=== PATIENT | male | born 1945 | race Caucasian/White ===

== ENCOUNTER → 2018-03-12 | Outpatient (CLI) | payer MEDICARE, BC ==
[~2018-03-12] MED LIST: ACETAMINOPHEN325 M1 PO; ASPIRIN81 M2 PO; ATENOLOL 25 MG25 M1 PO; AVELOX 400 MG400 MG PO; B-COMPLEX FOL400 MCG PO; CALCIUM 600 MG1 EAC3 PO; DAILY GARLIC O400 MG PO; FISH OIL 1,0001 EAC5 PO; FISH OIL 1,2001 EAC4 PO; LISINOPRIL20 MG PO; MUCINEX TA600 MG/TA1 PO; NEPHROCAPS SOFT1 CAP PO; PRINIVIL PO; ROBITUSSIN100 MG/5 M PO; SUPER B-COMPL400 MCG PO; TENORMIN PO; XANAX 0.25 MG0.25 MG PO
== END ==
LOC: M.MRI 10:48
DX: I67.82 Cerebral ischemia (principal); J33.9 Nasal polyp, unspecified; J34.1 Cyst and mucocele of nose and nasal sinus; F33.1 Major depressive disorder, recurrent, moderate; R26.81 Unsteadiness on feet

== ENCOUNTER 2018-05-05 14:09 | Inpatient (IN) | payer MEDICARE, BC ==
[~2018-05-05] VITALS: Ht 170.2 cm; Wt 83.9 kg
--- NOTE | ~2018-05-05 | OP ---
[address] [address] OPERATIVE REPORT Name: ALTAGRACIA CAPELLAN Room: [address] IN [facility]#: [id number] Admission: 05/05/18 Attend Phys: Brendan Gibbs MD Discharge: Date of : 41 Report #: [id number] THIS REPORT FOR: //name// CC: Brendan Ortiz DATE OF SERVICE: 05/06/2018 PREOPERATIVE DIAGNOSES: 1. Left ureteral stone. 2. Left renal stones. POSTOPERATIVE DIAGNOSES: 1. Left ureteral stone. 2. Left renal stones. PROCEDURE PERFORMED: Cystoscopy, left retrograde pyelogram, ureteroscopy, laser lithotripsy and stent placement. SURGEON: Brendan Hughes MD. ANESTHESIA: General. ESTIMATED BLOOD LOSS: Minimal. COMPLICATIONS: None. INDICATION FOR PROCEDURE: This is a 73-year-old gentleman with long history of stones. He presents acutely with left flank pain. CT scan confirms a 5-6 mm left proximal ureteral stone with some hydronephrosis and multiple stones in the left kidney. His options for management were discussed in detail and he would like to proceed with cystoscopy, left retrograde pyelogram, ureteroscopy, laser lithotripsy and possible stent placement. The risks, benefits, possible complications were explained in detail to both he and his family. They voiced clear understanding and would like to proceed. DESCRIPTION OF OPERATION: After obtaining informed consent, the patient was taken to the operating room and placed in supine position. After adequate general anesthesia and IV antibiotics, he was prepped and draped in the dorsal lithotomy position. A 21-Hungarian cystoscope with 30-degree lens was introduced into the urethra, was normal caliber all the way down to the prostatic urethra, which showed moderate bilobar hypertrophy. Upon entering the bladder, the bladder systematically inspected. There were no stones, tumors or diverticula. There was mild trabeculation throughout. The left ureteral catheter was used to perform retrograde pyelogram. There is a faint calcific density overlying the [id number] third of the ureter. On retrograde, [place] [address] OPERATIVE REPORT Name: ALTAGRACIA CAPELLAN Room: [address] IN ..#: [id number] Admission: 05/05/18 Attend Phys: Brendan Gibbs MD Discharge: Date of : 41 Report #: [id number] There was mild hydro proximal, but no significant pelvocaliectasis. There were multiple calcific densities overlying the left renal shadow. A sensor guidewire was passed in retrograde fashion and rigid ureteroscopy was carried out alongside the wire into the distal ureter where the stone was encountered. It was estimated to be about 6 mm. Using a 200 micron holmium laser fiber, stone was fragmented in multiple tiny fragments. The stones were basketed and retrieved atraumatically through the distal ureter. An access sheath was then placed over the wire under fluoroscopic guidance in the mid ureter. A second wire was placed as a safety wire and flexible ureteroscopy was carried out into the kidney. The kidney was inspected. There were multiple stones in some of the calices, ranging from 3 mm to 6 mm. Using a 200 micron holmium laser fiber, the stones were fragmented in multiple tiny fragments. Some of the larger fragments were basketed. The lower pole malcolm was difficult to visualize due to some bleeding in that region. Otherwise, all sizable fragments were removed. The ureteral access sheath was removed and the ureter was inspected. Upon removal of the ureteroscope, there was no evidence of any ureteral injury or ureteral stones. The cystoscope was replaced in the bladder and a 4.8 x 28 cm double-J stent was passed over the wire in a retrograde fashion. A good coil was noted overlying the renal pelvis under fluoroscopy and a good coil was directly visualized in the bladder. The bladder was drained. Uro-Jet was applied per urethra. B and O suppository was placed per rectum. Under crew caller imaging at the end of the case, the stent was in good location. No obvious stone fragments were identified. The patient was extubated and taken to recovery room in good condition with plans to return care to the floor, dismiss when stable. Follow up in 1-2 weeks for KUB and possible stent removal depending on residual stone burden. By: [id number] Hughes MD /saturnino
[~2018-05-05 14:09] MED LIST changes: +B COMPLEX FOLIC ACID; -B-COMPLEX FOL400 MCG PO; +CALCIUM 600 MG; -CALCIUM 600 MG1 EAC3 PO; +VIT
[2018-05-05 14:47] VITALS: BP 166/79
[2018-05-05 14:56] LABS: ABSOLUTE LYMPHOCYTES 1.4 thou/uL (0.8-5.3); ABSOLUTE MONOCYTES 0.9 thou/uL (0.0-1.2); ABSOLUTE NEUTROPHILS 10.8 thou/uL (1.6-8.1); BASOPHILS 0.2 %; HEMATOCRIT 48.3 % (42.0-52.0); HEMOGLOBIN 16.2 gm/dL (14.0-18.0); LYMPHOCYTES 10.4 %; MCH 32.6 pg (26.0-34.0); MCHC 33.4 g/dL (28.0-37.0); MCV 97.6 fL (80.0-100.0); MONOCYTES 7.1 %; MPV 7.6 fl. (7.2-11.1); NUCLEATED RBCS 0 /100WBC; PLATELET COUNT* 263 thou/uL (150-400); POLYS 82.3 %; RBC 4.95 mil/uL (4.50-6.00); RDW-CV 12.9 % (10.5-14.5); WBC 13.1 thou/uL (4.0-11.0)
[2018-05-05 15:03] LABS: CALCIUM 8.9 mg/dL (8.5-10.1); CREATININE 1.9 mg/dL (0.6-1.3); POTASSIUM 4.3 mmol/L (3.5-5.1)
[2018-05-05 15:07] LABS: ALBUMIN 3.4 g/dL (3.4-5.0); TOTAL PROTEIN 7.4 g/dL (6.4-8.2)
--- NOTE | 2018-05-05 15:20 | NUR ---
CT COMPLEATE PATIENT RETURNED TO ED
--- NOTE | 2018-05-05 18:26 | NUR ---
DR SANCHEZ AND THE ED PROVIDER DISCUSSED WHETHER OR NOT TO STRAIGHT CATH PT AND OR TO PLACE A CARROLL, DR SANCHEZ WANTED DR JOHNSON TO DECIDE WHICH HE WANTED TO BE PLACED. DR JOHNSON PAGED AND CALL RECIEVED ON JOINT AND SPINE. ORDERS TAKEN AND PLACED IN PT CHART ON JOINT SPINE, WILLIAM THE RN ON JOINT SPINE UPDATED REGARDING NEW ORDERS AND CONSTRUCTION COST ESTIMATOR NOTIFIED REGARDING SUPPLIES NEEDED FOR NEW ORDER. WILL SIGN OFF CARE AT THIS TIME
[2018-05-05 18:39] VITALS: BP 136/79
--- NOTE | 2018-05-05 19:50 | NUR ---
PT ARRIVED ON UNIT @ 1814. ALERT AND ORIENTED X 4, BUT SLOW TO RESPOND AT TIMES. REPORTS PAIN @ 09/30. DENIES NAUSEA. PT ORIENTED TO ROOM. PT USED URINAL WITH SBA X 1 @ BEDSIDE WITH 350 ML OUTPUT. @ BEDSIDE. BED ALARM IN USE. PT HAS CALL LIGHT WITHIN REACH.
[2018-05-05 20:00] VITALS: BP 149/80
--- NOTE | 2018-05-06 03:31 | NUR ---
PT HAD OUTPUT OF 850ML BY 2100. CARROLL NOT PLACE. PT STATES NO DISCOMFORT. PAIN CONTROLLED WITH MORPHINE. UA SENT TO LAB AT 0330.
[2018-05-06 04:18] LABS: HEMATOCRIT 40.6 % (42.0-52.0); MCH 33.4 pg (26.0-34.0); MCHC 33.8 g/dL (28.0-37.0); MCV 98.8 fL (80.0-100.0); MPV 7.7 fl. (7.2-11.1); RBC 4.11 mil/uL (4.50-6.00); RDW-CV 13.3 % (10.5-14.5); WBC 9.7 thou/uL (4.0-11.0)
[2018-05-06 04:41] LABS: ALBUMIN 2.6 g/dL (3.4-5.0); CREATININE 1.9 mg/dL (0.6-1.3); MAGNESIUM 1.8 mg/dL (1.8-2.4); POTASSIUM 4.2 mmol/L (3.5-5.1); TOTAL BILIRUBIN 1.3 mg/dL (<0.1-1.0); TOTAL PROTEIN 5.9 g/dL (6.4-8.2)
--- NOTE | 2018-05-06 04:48 | NUR ---
PT REMAINED A&Ox4 THROUGHOUT SHIFT. VITALS STABLE. PAIN CONTROLLED WITH MORPHINE. NAUSEA CONTROLLED WITH ZOFRAN. PT STATED DOES NOT TAKE INSULIN AT HOME SO DENIED HS DOSE. IV IN R AC PATENT, INFUSING. UP WITH STB TO BATHROOM, 1000ML+ OF URINE OUTPUT SO FAR DURING SHIFT, DID NOT PUT IN CARROLL. NPO SINCE MIDNIGHT. UA SENT TO LAB. CALL LIGHT WITHIN REACH. HOURLY ROUNDING COMPLETE. WILL CONTINUE TO MONITOR.
[2018-05-06 04:52] LABS: HEMOGLOBIN 13.7 gm/dL (14.0-18.0)
[2018-05-06 05:14] LABS: URINE BILIRUBIN NEGATIVE (Negative); URINE BLOOD 3+ (Negative); URINE CLARITY CLEAR; URINE COLOR YELLOW; URINE GLUCOSE-RANDOM NEGATIVE (Negative); URINE KETONES NEGATIVE (Negative); URINE LEUKOCYTES-REFLEX NEGATIVE (Negative); URINE NITRITE-REFLEX NEGATIVE (Negative); URINE PROTEIN TRACE (Negative); URINE UROBILINOGEN 0.2 E.U./dl (0.2-1.0)
[2018-05-06 05:23] LABS: BACTERIA-REFLEX 1-9 Few /HPF (None Seen); CASTS None Seen /LPF (None Seen); CRYSTALS None Seen /LPF (None Seen); MUCUS 0-3 Light strn/LPF (None Seen); SQUAMOUS 0-3 Few /LPF (0-3); URINE WBC-REFLEX 0-5 Rare /HPF (0-5)
[2018-05-06 08:00] VITALS: BP 115/55
[2018-05-06 13:13] VITALS: BP 115/55
--- NOTE | 2018-05-06 15:38 | EKG ---
[place] [address] ELECTROCARDIOGRAM REPORT Name: ALTAGRACIA CAPELLAN Room: [address] ADM IN M.R.#: [id number] Admission: 05/05/18 Attend Phys: Brendan Gibbs MD Discharge: Date of : 41 Report #: [id number] THIS REPORT FOR: //name// [facility] Test Date: 2018-05-06 Test Time: 13:45:41 Pat Name: ALTAGRACIA MARILIA Department: Room: [address] Gender: M Rigging Engineer: JES FLANAGAN : 1945 Requested By: Brendan Gibbs Order Number: [id number] Reading MD: Sergei Rust Measurements Intervals [place] Rate: 84 P: 45 MO: 162 QRS: 9 QRSD: 96 T: 34 QT: 377 QTc: 446 Interpretive Statements Sinus rhythm Low voltage, precordial leads Abnormal R-wave progression, early transition Baseline wander in lead(s) V1 Compared to ECG 11/29/2012 09:16:03 Low QRS voltage now present Electronically Signed On 05-06-2018 15:37:50 SENIOR ENVIRONMENTAL CONSULTANT by Sergei Rust [email or web address] <ELECTRONICALLY SIGNED> By: Sergei Rust MD, [facility] 05/06/18 1537 1345 1345 Sergei Rust MD, [facility] /EPI
--- NOTE | 2018-05-06 19:17 | NUR ---
ASSUMED CARE OF PATIENT AT APPROX 0730. ALERT AND ORIENTED X4. ASSESSMENT COMPLETED BY STUDENT NURSE JEAN CLAUDE AND REVIEWED BY THIS NURSE. NO COMPLAINTS OF SOA. PAIN AND NAUSEA MANAGED WITH MEDICATIONS. PATIENT TO PACU AT APPROX 1415 AND HAS NOT RETURNED AT THIS TIME. HOURLY RONDS COMPLETED AND FALL PRECAUTIONS IN PLACE WHILE PATIENT WAS ON UNIT.
[2018-05-06 20:19] VITALS: BP 126/63
[2018-05-07] VITALS: BP 110/56
[2018-05-07 04:00] VITALS: BP 103/41
--- NOTE | 2018-05-07 04:58 | NUR ---
RECEIVED PT FROM PACU AT APPROX 2019. PT AWAKE AND ORIENTED X4. VSS IN 02 @0.5L. NOT IN DISTRESS. DENIES CHEST PAIN. BUSINESS OBJECTS ARCHITECT IN PLACE, TRACING SR. WAS ABLE TO VOID WITHOUT DIFFICULTY, HEMATURIA NOTED. PT REFUSED TO WEAR BIPAP DURING THE NIGHT EVEN AFTER EDUCATION. NO DESATURATIONS NOTED. HOURLY ROUNDING DONE. CALL LIGHT WITHIN REACH, FALL PRECAUTIONS IN PLACE.
[2018-05-07 08:00] VITALS: BP 128/66
[2018-05-07] MEDS ORDERED: LEVSIN0.125 MG SUBLING (09:02)
[2018-05-07 12:01] VITALS: BP 128/66
[2018-05-07] MEDS ORDERED: PHENAZOPYRIDIN200 M2 PO (12:07)
[2018-05-07] MEDS ORDERED: LEVSIN0.125 MG PO (12:14)
[2018-05-07 12:15] VITALS: BP 114/60
[2018-05-07] MEDS ORDERED: GLUCOPHAGE XR750 MG PO (12:31)
--- NOTE | 2018-05-07 13:00 | NUR ---
RECEIVED REPORT FROM YARED JOHNSON. ASSUMED CARE OF PT AROUND 729. PT A&OX4, VSS, O2 SAT >90% ON RA. SPLIT LEATHER MOSSER IN PLACE TRACING SR. AM ASSESSMENT AND VITALS COMPLETED CHARTED. PT SEEN BY UROLOGY - UROLOGY HAS SIGNED OFF. PT TOLERATING DIET. AT BEDSIDE. URINE BLOOD TINGED. PT DENIES PAIN OR DISCOMFORT. DISCHARGE ORDERS RECEIVED. DISCHARGE COMPLETED DOCUMENTED. DISCHARGE SUMMARY, CARE NOTES AND SCRIPTS GONE OVER WITH PT, PT COMMUNICATES UNDERSTANDING. IV AND SPLIT LEATHER MOSSER REMOVED. ALL BELONGINGS GATHERED AND SENT HOME WITH THE PT. PT LEFT UNIT IN WC WITH NURSING STAFF. PT LEFT FACILITY IN CAR WITH SPOUSE.
== END 2018-05-07 13:00 | disposition home or self-care (01) | DRG 659 ==
LOC: M.ERS 14:09 → M.TBA-ER 16:37 → M.ORTHSURG 16:37 → M.2W 16:37 → M.ORTHSURG 17:27 → M.2W 05-06 20:30
PROVIDERS: Nurse Practitioner Family; ADMIT Internal Medicine
PROC: 5A09357 Assistance with Respiratory Ventilation, Less than 24 Consecutive Hours, Continuous Positive Airway Pressure (ICD-10-PCS; principal; 2018-05-06)
PROC: 0T778DZ Dilation of Left Ureter with Intraluminal Device, Via Natural or Artificial Opening Endoscopic (ICD-10-PCS; 2018-05-06)
PROC: 0TC78ZZ Extirpation of Matter from Left Ureter, Via Natural or Artificial Opening Endoscopic (ICD-10-PCS; 2018-05-06)
PROC: BT1F1ZZ Fluoroscopy of Left Kidney, Ureter and Bladder using Low Osmolar Contrast (ICD-10-PCS; 2018-05-06)
DX: N20.1 Calculus of ureter (principal); N17.0 Acute kidney failure with tubular necrosis; R65.10 Systemic inflammatory response syndrome (SIRS) of non-infectious origin without acute organ dysfunction; E11.22 Type 2 diabetes mellitus with diabetic chronic kidney disease; I12.9 Hypertensive chronic kidney disease with stage 1 through stage 4 chronic kidney disease, or unspecified chronic kidney disease; R33.9 Retention of urine, unspecified; N18.3 Chronic kidney disease, stage 3 (moderate); Z88.6 Allergy status to analgesic agent; Z79.82 Long term (current) use of aspirin; Z79.899 Other long term (current) drug therapy

== ENCOUNTER → 2018-06-30 | Outpatient (CLI) | payer MEDICARE, BC ==
[~2018-06-30] MED LIST changes: +GLUCOPHAGE XR750 MG PO; +LEVSIN0.125 MG PO; +LEVSIN0.125 MG SUBLING; +PHENAZOPYRIDIN200 M2 PO
== END ==
LOC: M.ULTRA 11:24
DX: N20.2 Calculus of kidney with calculus of ureter (principal)

== ENCOUNTER → 2020-06-20 | Outpatient (CLI) | payer MEDICARE, BC | LOC: M.MRI 11:07 | PROVIDERS: ATTEND Family Medicine | DX: R41.3 Other amnesia (principal); R26.81 Unsteadiness on feet; R26.89 Other abnormalities of gait and mobility ==